=== PATIENT | male | born 1985 | race Hispanic/Latino ===

== ENCOUNTER 2021-05-23 00:46 | Emergency (ER) | payer OTHER ==
[~2021-05-23] VITALS: Ht 180.3 cm; Wt 109.6 kg
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
[2021-05-23] MEDS ORDERED: MORPHINE 4 MG/ML 1ML VIAL/SYRINGE (J2270) SC ONE (01:55)
[2021-05-23] MEDS ORDERED: AUGMENTIN 875 MG TAB PO ONE (03:00)
[2021-05-23] MEDS ORDERED: AUGM875T28 PO ×2 (03:30→03:33)
[2021-05-23] MEDS ORDERED: HYDR-3713 PO ×2 (03:30→03:33)
[2021-05-23 03:45] VITALS: BP 118/60
--- NOTE | 2021-05-23 06:14 | ED PDOC ---
Post-Departure Follow-Up dr guillen faxed ct c spine, ct max fac, ct t spine for fu Amina Cordova MD May 23, 2021 06:14
== END 2021-05-23 03:55 | disposition home or self-care (01) ==
LOC: M ED 00:46
DX: S02.401A Maxillary fracture, unspecified side, initial encounter for closed fracture (principal); S05.11XA Contusion of eyeball and orbital tissues, right eye, initial encounter; X58.XXXA Exposure to other specified factors, initial encounter; Y92.9 Unspecified place or not applicable; Y93.9 Activity, unspecified; Y99.9 Unspecified external cause status
CPT/HCPCS: 70450; 70486; 72125; 99284; J2270